=== PATIENT | male | born 1960 | race Caucasian/White ===

== ENCOUNTER 2017-09-01 09:46 | Day surgery (SDC) | payer OTHER ==
[2017-08-27 15:13] VITALS: BMI 25.7
[~2017-09-01 09:46] MED LIST: LACTATED RINGERS 1,000 ML IV SCH
[2017-09-01 10:07] VITALS: RESP 16; TEMP 98.1
[2017-09-01] MEDS ORDERED: LIDOCAINE 1% INJ 10MG/ML (20 ML MDV) ONE (11:42)
[2017-09-01] MEDS ORDERED: PROPOFOL 10 MG/ML 20 ML VIAL IV ONE (11:42)
--- NOTE | 2017-09-01 11:45 | P.GSHP ---
History of Present Illness H&P Date: 09/01/17 Chief Complaint: Screening colonoscopy This a 56-year-old male referred from Dr. Genesis buitrago. Patient presents today for screening colonoscopy. He denies any significant GI complaints. Past Medical History Past Medical History: Thyroid Disorder History of Any Multi-Drug Resistant Organisms: None Reported Additional Past Surgical History / Comment(s): colonsocopy Past Anesthesia/Blood Transfusion Reactions: No Reported Reaction Smoking Status: Never smoker - Past Family History Mother Family Medical History: Cancer Medications and Allergies Home Medications Medication Instructions Recorded Confirmed Type Levothyroxine Sodium [Synthroid] 75 mcg PO DAILY 08/27/17 09/01/17 History Allergies Allergy/AdvReac Type Severity Reaction Status Date / Time No Known Allergies Allergy Verified 09/01/17 09:58 Surgical - Exam Vital Signs Temp Pulse Resp BP Pulse Ox 98.1 F 54 L 16 148/88 100 09/01/17 10:05 09/01/17 10:05 09/01/17 10:05 09/01/17 10:05 09/01/17 10:05 - General well developed, no distress - Eyes PERRL - ENT normal pinna - Neck no masses - Respiratory normal expansion - Cardiovascular Rhythm: regular Heart Sounds: normal: S1 - Abdomen Abdomen: soft, non tender Assessment and Plan Assessment: We'll perform screening colonoscopy.
[2017-09-01 12:37] VITALS: BP 125/85; PULSE 56
--- NOTE | 2017-09-01 12:59 | P.OP ---
Date of Procedure: 09/01/17 Preoperative Diagnosis: Screening colonoscopy Postoperative Diagnosis: Rectal polyp 2, right colon polyp Mild diverticulosis Procedure(s) Performed: Colonoscopy Anesthesia: MAC Surgeon: El Fuller Pathology: other (Rectal polyp 2, right colon polyp) Condition: stable Disposition: PACU Description of Procedure: The patient's placed on the endoscopy table lateral position. He received IV sedation. Digital rectal exam was performed. A polyp was palpated. Flexible colonoscope was then placed patient anus and at the anal verge there was a polyp seen. Scope was then advanced through the colon. Another polyp was seen in the proximal rectum the scope was then placed throughout the colon and the ileocecal valve was visualized. The cecum appeared normal. In the right colon there was a small sessile polyp and this was removed the forcep. Scope was withdrawn the remainder the ascending colon appeared normal. The transverse colon was normal. In the descending colon was a few scattered diverticula. Scope was then brought back and the sigmoid colon and a few scattered diverticula were seen. Scope was then brought back the rectum and in the proximal rectum there was a peduncular polyp and this was removed with the snare. Scope was then brought back and the original rectal polyp which was visualized just above the anus was removed with the snare. Scope was withdrawn for patient.
== END 2017-09-01 12:58 | disposition home or self-care (01) ==
LOC: ORWHC2ENDO 09:46
PROVIDERS: ATTEND Surgery
DX: Z12.11 Encounter for screening for malignant neoplasm of colon (principal); D12.8 Benign neoplasm of rectum; K63.5 Polyp of colon; K57.30 Diverticulosis of large intestine without perforation or abscess without bleeding; E07.9 Disorder of thyroid, unspecified; Z79.890 Hormone replacement therapy
CPT/HCPCS: 45380; 45385; 88305

== ENCOUNTER 2018-05-27 16:03 | Emergency (ER) | payer OTHER ==
[2018-05-27] MEDS ORDERED: MORPHINE SULFATE 4 MG/ML SYRINGE IV STA (16:39)
[2018-05-27] MEDS ORDERED: SODIUM CHLORIDE 0.9% 1,000 ML IV STA (17:08)
--- NOTE | 2018-05-27 17:17 | XR ---
EXAMINATION TYPE: XR ribs bilateral DATE OF EXAM: 05/27/2018 COMPARISON: NONE HISTORY: Fall. Pain. TECHNIQUE: 8 views FINDINGS: I see no pleural effusion or pneumothorax. The lungs are clear of infiltrate. I see no rib fracture. IMPRESSION: Negative bilateral rib exam.
--- NOTE | 2018-05-27 17:28 | XR ---
EXAMINATION TYPE: XR chest 2V DATE OF EXAM: 05/27/2018 COMPARISON: NONE HISTORY: Fall. Pain. TECHNIQUE: Frontal and lateral views of the chest are obtained. FINDINGS: Heart and mediastinum are normal. Lungs are clear. Diaphragm is normal per there is no sig n of a pneumothorax. Bony thorax appears intact. IMPRESSION: Normal chest
--- NOTE | 2018-05-27 17:56 | ED ---
General Adult HPI - General Source: patient, RN notes reviewed, old records reviewed Mode of arrival: ambulatory Limitations: no limitations <Catracho Espinosa - Last Filed: 05/27/18 19:05> <Ortiz Avina - Last Filed: 05/28/18 00:47> - General Chief complaint: Fall Stated complaint: Fell 6 ft - History of Present Illness Initial comments: 57-year-old male patient with no pertinent past medical history presents to ED after sustaining acute fall. Patient states that he was standing on a ladder approximate 6 feet up in the air when the leg of the ladder slipped, patient became unstable and fell on concrete. Patient fell directly on his left flank. Patient denies any trauma to head and neck upper or lower extremities. Patient primary complaint is his posterior left ribs. Patient states that he has pain with palpation of left posterior ribs. Patient denies trauma to head or neck, loss of consciousness, difficulty breathing, changes in vision, nausea vomiting diarrhea, abdominal pain, hematuria, pain in upper and lower extremities. Patient is ambulatory. Patient is using all extremities. Systemic: Pt denies fatigue, myalgia, fever/chills, rash. Pt denies weakness, night sweats, weight loss. Neuro: Pt denies headache, visual disturbances, syncope or pre-syncope. HEENT: Pt denies ocular discharge or irritation, otalgia, rhinorrhea, pharyngitis or notable lymphadenopathy. Cardiopulmonary: Pt denies chest pain, SOB, heart palpitations, dyspnea on exertion. Abdominal/GI: Pt denies abdominal pain, n/v/d. : Pt denies dysuria, burning w/ urination, frequency/urgency. Denies new onset urinary or bowel incontinence. MSK: Pt denies loss of strength or function in extremities. Neuro: Pt denies new onset weakness, paresthesias. (Catracho Espinosa) - Related Data Home Medications Medication Instructions Recorded Confirmed Levothyroxine Sodium [Synthroid] 88 mcg PO DAILY 05/27/18 05/27/18 Previous Rx's Medication Instructions Recorded Hydrocodone/Acetaminophen [Rush 1 each PO Q6HR PRN 3 Days #12 tab 05/27/18 5-325] Ibuprofen [Motrin] 600 mg PO Q6HR PRN #30 day 05/27/18 Allergies Allergy/AdvReac Type Severity Reaction Status Date / Time No Known Allergies Allergy Verified 05/27/18 16:59 Review of Systems ROS Other: All systems not noted in ROS Statement are negative. <Catracho Espinosa - Last Filed: 05/27/18 19:05> ROS Other: All systems not noted in ROS Statement are negative. <Ortiz Avina Blake - Last Filed: 05/28/18 00:47> ROS Statement: Those systems with pertinent positive or pertinent negative responses have been documented in the HPI. Past Medical History Past Medical History: Thyroid Disorder History of Any Multi-Drug Resistant Organisms: None Reported Additional Past Surgical History / Comment(s): colonsocopy Past Anesthesia/Blood Transfusion Reactions: No Reported Reaction Past Psychological History: No Psychological Hx Reported Smoking Status: Never smoker Past Alcohol Use History: None Reported Past Drug Use History: None Reported - Past Family History Mother Family Medical History: Cancer <Catracho Espinosa - Last Filed: 05/27/18 19:05> General Exam Limitations: no limitations <Catracho Espinosa - Last Filed: 05/27/18 19:05> <Ortiz Avina - Last Filed: 05/28/18 00:47> - General Exam Comments Initial Comments: Constitutional: NAD, AOX3, Pt has pleasant affect. HEENT: NC/AT, trachea midline, neck supple, no lymphadenopathy. Posterior pharynx non erythematous, without exudates. External ears appear normal, without discharge. Mucous membranes moist. Eyes PERRLA, EOM intact. There is no scleral icterus. No pallor noted. Cardiopulmonary: RRR, no murmurs, rubs or gallops, no JVD noted. Lungs CTAB in anterior and posterior kc. No peripheral edema. Abdominal exam: Abdomen soft and non-distended. Abdomen non-tender to palpation in all 4 quadrants. Bowel sounds active in LLQ. No hepatosplenomegaly. No ecchymosis Neuro: CN II-XII intact. No nuchal rigidity. No focal deficit, no facial droop. No cervical spinal tenderness. Full active range of motion of neck. MSK: Patient has pain with palpation of his posterior angle left 8th rib. Patient has focal tenderness in this area. Patient does not have any other areas of tenderness. All joints palpated upper, lower extremities, abdomen, chest wall, cervical thoracic lumbar, no other areas of tenderness noted. Patient has 5 out of 5 strength quadriceps, psoas, biceps, triceps bilaterally. No posterior calf tenderness bilaterally, homans sign negative bilaterally. Posterior tibialis and radial pulse +2 bilaterally. Derm: No ecchymoses noted. (Catracho Espinosa) Vital Signs 05/27/18 05/27/18 05/27/18 16:06 16:30 17:00 Temperature 94.4 F L Pulse Rate 53 L 55 L 58 L Respiratory 22 23 16 Rate Blood Pressure 108/73 115/85 113/95 O2 Sat by Pulse 98 94 L 99 Oximetry 05/27/18 05/27/18 05/27/18 17:30 18:00 18:05 Temperature 97.6 F Pulse Rate 61 56 L Respiratory 15 18 Rate Blood Pressure 106/88 119/82 126/81 O2 Sat by Pulse 97 97 Oximetry 05/27/18 05/27/18 18:30 19:00 Temperature Pulse Rate 60 59 L Respiratory 12 18 Rate Blood Pressure 126/81 122/81 O2 Sat by Pulse 96 Oximetry Medical Decision Making - EKG Data -: EKG Interpreted by Fl <Catracho Espinosa - Last Filed: 05/27/18 19:05> <Ortiz Avina - Last Filed: 05/28/18 00:47> - Medical Decision Making 57-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 Patient did not have any trauma to head or neck, no pain in head or neck, no loss consciousness, no changes in vision, no headache. Patient 's pain is localized in his left posterior rib region. Physical exam revealed good bilateral breath sounds in anterior and posterior kc, regular rate and rhythm. Neuro exam is within normal limits. Patient's ambulatory without difficulty. Patient pain relieved after 4 mg IM morphine. Patient able to take deep inspirations at well. CT chest abdomen pelvis with contrast displayed a nondisplaced rib fractures of the eighth ninth 10th and 11th left posterior. CT did not display any other injury, no pneumothorax, no intra- abdominal injury. Patient is not on blood thinners. Discussed findings with patient, offered patient the option of staying in observation overnight for IV pain control. Patient states that he is rather go home. Emphasized to patient the necessity of incentive spirometry at home. Patient verbalized understanding. Patient to be discharged with by mouth analgesia to take as needed for pain at home. Patient to be given orthopedic referral to call in morning. Patient to return to ED if any new signs or symptoms develop including difficulty breathing, chest pain, shortness of breath, abdominal pain , hematuria, any other signs or symptoms. Pt to f/u with PCP in 1-2 days. Case discussed with Dr. Hollins. (Catracho Espinosa) 57-year-old male with fall and left chest wall pain. Patient does have consecutive rib fractures, eighth, ninth, 10th and 11th rib fractures on the left. No underlying the thorax or pulmonary contusion. Patient is resting comfortably on reevaluation, vital signs are stable. I did offer the patient observation for pain control, he declines, prefers outpatient treatment. He will return with any worsening symptoms. He will use his incentive spirometer. (Ortiz Avina) - EKG Data EKG Comments: Ventricular rate 55, when necessary for 132, QRS 100, QT/QTc 440/420. His bradycardia, possible left atrial enlargement. No concerns for acute ischemia. (Catracho Espinosa) Disposition Is patient prescribed a controlled substance at d/c from ED?: Yes When asked, does pt state using other controlled substances?: No If prescribed controlled substance>3 days was MAPS reviewed?: Prescribed <3 Days If opioid is for acute pain is fill amount 7 days or less?: Yes If Rx opioid, was Start Talking consent form obtained?: Yes <Catracho Espinosa - Last Filed: 05/27/18 19:05> <Ortiz Avina - Last Filed: 05/28/18 00:47> Clinical Impression: Closed traumatic nondisplaced fracture of rib, Ribs, multiple fractures Disposition: HOME SELF-CARE Condition: Good Instructions: Rib Fracture (ED) Additional Instructions: Patient to adhere to previously discussed treatment plan and will take medication(s) as directed. Patient to follow up with PCP in 1-2 days. Patient to return to ED if symptoms do not improve. Prescriptions: Hydrocodone/Acetaminophen [Rush 5-325] 1 each PO Q6HR PRN 3 Days #12 tab PRN Reason: Pain Ibuprofen [Motrin] 600 mg PO Q6HR PRN #30 day PRN Reason: Pain Referrals: Genesis Pro, [Primary Care Provider] - 1-2 days Melonie Girard, DAWIT [Nurse Practitioner] - 1-2 days
[2018-05-27 18:12] VITALS: RESP 18; TEMP 97.6
--- NOTE | 2018-05-27 18:31 | CT ---
EXAMINATION TYPE: CT ChestAbdPelvis w con DATE OF EXAM: 05/27/2018 COMPARISON: None HISTORY: Fall x6 feet, left side chest pain. CT DLP: 665.7 mGycm Automated exposure control for dose reduction was used. CONTRAST: CT scan of the chest, abdomen and pelvis is performed without Oral Contrast and with IV Contrast, pat ient injected with 100ml mL of Isovue 300. FINDINGS: The lungs are clear of infiltrate. There is no pleural effusion. Heart size is normal. There is no pe ricardial effusion. There is no mediastinal adenopathy. There is no evidence of pneumothorax. Thoraci c aorta is intact without evidence of aneurysm or dissection. There is no contrast extravasation. Liver spleen pancreas gallbladder appear normal. Bile ducts are not dilated. There is no adrenal mass . Kidneys show satisfactory contrast opacification. There is 1 cm cortical cyst posterior left kidney . There is no hydronephrosis. There is no retroperitoneal adenopathy. Bladder distends smoothly. Ther e is no inguinal hernia. There is no free fluid in the pelvis. I see no intestinal wall thickening. There are no dilated loops. Appendix is not seen. There is no si gn of appendicitis. There is no mesenteric edema or adenopathy. The bony pelvis is intact. There is narrowing of L5-S1 disc space with spurring. Thoracic and lumbar spine are intact. Sternum is intact. There are fractures of the posterior left side 8, 9, 10, 11 ribs . IMPRESSION: Mild spondylosis in the lower lumbar spine. Nondisplaced multiple posterior rib fractures .. No evidence of acute traumatic injury within the chest abdomen and pelvis.
[2018-05-27 19:29] VITALS: BP 122/81; PULSE 59
== END 2018-05-27 19:36 | disposition home or self-care (01) ==
LOC: EC 16:03
DX: S22.42XA Multiple fractures of ribs, left side, initial encounter for closed fracture (principal); E07.9 Disorder of thyroid, unspecified; Z79.899 Other long term (current) drug therapy; W11.XXXA Fall on and from ladder, initial encounter; Y92.69 Other specified industrial and construction area as the place of occurrence of the external cause
CPT/HCPCS: 93005; 71110; 71046; 71260; 74177; 99284; 96374; 96361; J2270; Q9967

== ENCOUNTER → 2019-11-21 | Outpatient (CLI) | payer OTHER | END | disposition home or self-care (01) | LOC: LABWHC1 12:47 | PROVIDERS: ATTEND Surgery | DX: Z11.59 Encounter for screening for other viral diseases (principal) ==

== ENCOUNTER → 2019-11-24 | Day surgery (SDC) | payer OTHER ==
[2019-11-23 08:59] VITALS: BMI 24.4
[~2019-11-24] MED LIST changes: +GLYCOPYRROLATE 0.2 MG/ML 2 ML VIAL ONE; +LIDOCAINE 1% (10MG/ML) FOR IV START INTRADERMA ONE; +PROPOFOL 10 MG/ML 20 ML VIAL IV ONE
[2019-11-24 09:30] VITALS: RESP 16; TEMP 97.4
--- NOTE | 2019-11-24 10:00 | P.GSHP ---
History of Present Illness H&P Date: 11/24/19 Chief Complaint: History of colon polyps Is a 59-year-old male with history of colon polyps. Patient rents today for colonoscopy Past Medical History Past Medical History: Thyroid Disorder Additional Past Medical History / Comment(s): HX COLON POLYP, HX OF FALL WITH BROKEN RIBS. History of Any Multi-Drug Resistant Organisms: None Reported Additional Past Surgical History / Comment(s): colonsocopy Past Anesthesia/Blood Transfusion Reactions: No Reported Reaction Past Psychological History: No Psychological Hx Reported Smoking Status: Never smoker Past Alcohol Use History: None Reported Past Drug Use History: None Reported - Past Family History Mother Family Medical History: Cancer Additional Family Medical History / Comment(s): BREAST CANCER Medications and Allergies Home Medications Medication Instructions Recorded Confirmed Type Levothyroxine Sodium [Synthroid] 88 mcg PO DAILY 05/27/18 11/23/19 History Allergies Allergy/AdvReac Type Severity Reaction Status Date / Time morphine AdvReac Severe DROPPED Verified 11/23/19 08:45 HEART RATE TO 28 Surgical - Exam Vital Signs Temp Pulse Resp BP Pulse Ox 97.4 F L 54 L 16 128/60 97 11/24/19 09:26 11/24/19 09:26 11/24/19 09:26 11/24/19 09:26 11/24/19 09:26 - General well developed, well nourished, no distress - Eyes PERRL - ENT normal pinna - Neck no masses - Respiratory normal expansion - Cardiovascular Rhythm: regular - Abdomen Abdomen: soft, non tender Assessment and Plan Assessment: History: Polyps. We'll perform colonoscopy.
--- NOTE | 2019-11-24 10:14 | P.OP ---
Date of Procedure: 11/24/19 Preoperative Diagnosis: History of colonic Polyps Postoperative Diagnosis: Normal colonoscopy Procedure(s) Performed: Colonoscopy Anesthesia: MAC Surgeon: El Fuller Pathology: none sent Condition: stable Disposition: PACU Description of Procedure: No PROCEDURE: The patient was placed on the endoscopy table in the lateral position. Digital rectal examination was performed which revealed no abnormalities. The prostate was symmetrical without nodules. Flexible colonoscope was then placed in the patient's anus and passed throughout the entire colon. The ileocecal valve was visualized. The cecum, ascending, transverse, descending and sigmoid colon were normal. The rectum was normal as well. There were no masses, polyps or diverticula noted in the entire colon.
[2019-11-24 10:34] VITALS: BP 107/77; PULSE 46
== END | disposition home or self-care (01) ==
LOC: ORWHC2ENDO 08:52
PROVIDERS: ATTEND Surgery
DX: Z12.11 Encounter for screening for malignant neoplasm of colon (principal); Z86.010 Personal history of colon polyps; E07.9 Disorder of thyroid, unspecified; Z87.81 Personal history of (healed) traumatic fracture; Z98.890 Other specified postprocedural states; Z80.3 Family history of malignant neoplasm of breast; Z79.890 Hormone replacement therapy; Z88.5 Allergy status to narcotic agent
CPT/HCPCS: J2704; G0105; 45378

== ENCOUNTER 2023-10-21 20:08 | Observation (INO) | payer OTHER ==
[2023-10-21 20:32] LABS: Basophils # (A) 0.1 k/uL (0-0.2); Basophils % (A) 1 %; Eosinophils # (A) 0.2 k/uL (0-0.7); Eosinophils % (A) 3 %; HCT 46.1 % (39.0-53.0); HGB 15.3 gm/dL (13.0-17.5); Lymphocytes # (A) 2.2 k/uL (1.0-4.8); Lymphocytes % (A) 31 %; MCHC 33.2 g/dL (31.0-37.0); MCV 93.2 fL (80.0-100.0); Mean Platelet Volume 8.9; Monocytes # (A) 0.4 k/uL (0-1.0); Monocytes % (A) 6 %; Neutrophils % (A) 57 %; Platelet Count 154 k/uL (150-450); RBC 4.94 m/uL (4.30-5.90); RDW 12.5 % (11.5-15.5)
[2023-10-21 20:41] LABS: ALT 31 U/L (4-49); AST 28 U/L (17-59); African American GFR (CKD) >90 (>60 ml/min/1.73 sqM); Albumin 4.6 g/dL (3.5-5.0); Alkaline Phosphatase 58 U/L (38-126); Anion Gap 4 mmol/L; Blood Urea Nitrogen 20 mg/dL (9-20); Calcium 9.7 mg/dL (8.4-10.2); Carbon Dioxide 29 mmol/L (22-30); Chloride 106 mmol/L (98-107); Glucose 96 mg/dL (74-99); Magnesium 2.3 mg/dL (1.6-2.3); Non-African American GFR(CKD) 88 (>60 ml/min/1.73 sqM); Potassium 4.2 mmol/L (3.5-5.1); Sodium 139 mmol/L (137-145); Total Bilirubin 0.7 mg/dL (0.2-1.3)
--- NOTE | 2023-10-21 20:45 | XR ---
EXAMINATION TYPE: XR chest 2V DATE OF EXAM: 10/21/2023 COMPARISON: 05/27/2018 HISTORY: Chest pain TECHNIQUE: Frontal and lateral views of the chest are obtained. FINDINGS: There is no focal air space opacity, pleural effusion, or pneumothorax seen. The cardiac silhouette size is within normal limits. The osseous structures are intact. IMPRESSION: No acute cardiopulmonary process.
[2023-10-21 20:54] LABS: Partial Thromboplastin Time 23.8 sec (22.0-30.0); Prothrombin Time 10.8 sec (10.0-12.5)
--- NOTE | 2023-10-21 21:08 | ED ---
General Adult HPI - General Chief complaint: Chest Pain Stated complaint: chest pain arm pain Time Seen by Provider: 10/21/23 20:15 Source: patient, RN notes reviewed, old records reviewed Mode of arrival: ambulatory Limitations: no limitations - History of Present Illness Initial comments: 62-year-old male presenting for evaluation of chest pain. Patient had an episode of central chest pain just prior to arrival. This was associated with lightheadedness and near syncope. Patient states he did use a pulse oximeter and noted that his heart rate was quite low at this time in the 30s. He does state that he has a low resting heart rate typically in the 60s. No prior history of cardiac disease. He states he has been dealing with some intermitte nt left shoulder and left arm pain for several weeks. No lower extremity pain or swelling. No fever. No cough. - Related Data Home Medications Medication Instructions Recorded Confirmed Acetaminophen Tab [Tylenol] 1,000 mg PO Q6HR PRN 10/21/23 10/21/23 Previous Rx's Medication Instructions Recorded Levothyroxine Sodium [Synthroid] 125 mcg PO DAILY@0630 #30 tab 10/22/23 Lidocaine 4% Patch 2 patch TOPICAL DAILY #30 patch 10/22/23 Allergies Allergy/AdvReac Type Severity Reaction Status Date / Time morphine AdvReac Severe DROPPED Verified 10/21/23 20:36 HEART RATE TO 28 Review of Systems ROS Statement: Those systems with pertinent positive or pertinent negative responses have been documented in the HPI. ROS Other: All systems not noted in ROS Statement are negative. Past Medical History Past Medical History: Thyroid Disorder Additional Past Medical History / Comment(s): HX COLON POLYP, HX OF FALL WITH BROKEN RIBS. History of Any Multi-Drug Resistant Organisms: None Reported Additional Past Surgical History / Comment(s): colonsocopy Past Anesthesia/Blood Transfusion Reactions: No Reported Reaction Past Psychological History: No Psychological Hx Reported Smoking Status: Never smoker Past Alcohol Use History: None Reported Past Drug Use History: None Reported - Past Family History Mother Family Medical History: Cancer Additional Family Medical History / Comment(s): BREAST CANCER General Exam Limitations: no limitations General appearance: alert, in no apparent distress Head exam: Present: atraumatic, normocephalic Eye exam: Present: normal appearance, PERRL ENT exam: Present: normal exam Neck exam: Present: normal inspection. Absent: tenderness, meningismus Respiratory exam: Present: normal lung sounds bilaterally. Absent: respiratory distress, wheezes Cardiovascular Exam: Present: normal rhythm, tachycardia GI/Abdominal exam: Present: soft. Absent: distended, tenderness, guarding Extremities exam: Present: normal inspection, normal capillary refill. Absent: pedal edema, calf tenderness Neurological exam: Present: alert, oriented X3, CN II-XII intact. Absent: motor sensory deficit Psychiatric exam: Present: normal affect, normal mood Skin exam: Present: warm, dry, intact. Absent: cyanosis, diaphoretic Course Vital Signs 10/21/23 10/21/23 10/21/23 20:12 21:35 22:00 Temperature 97.5 F L Pulse Rate 51 L 45 L 44 L Respiratory 18 16 16 Rate Blood Pressure 173/89 129/82 121/87 O2 Sat by Pulse 98 95 97 Oximetry 10/21/23 10/21/23 10/22/23 23:00 23:43 00:00 Temperature 97.6 F Pulse Rate 41 L 41 L 41 L Respiratory 16 18 18 Rate Blood Pressure 124/89 120/84 115/77 O2 Sat by Pulse 97 95 98 Oximetry Medical Decision Making - Medical Decision Making Was pt. sent in by a medical professional or institution (, PA, CLARITY DEVELOPER, urgent care, hospital, or skilled nursing...) When possible be specific @ -No Did you speak to anyone other than the patient for history (EMS, parent, family, police, friend...)? What history was obtained from this source @ -No Did you review nursing and triage notes (agree or disagree)? Why? @ -I reviewed and agree with nursing and triage notes Were old charts reviewed (outside hosp., previous admission, EMS record, old EKG, old radiological studies, urgent care reports/EKG's, skilled nursing records)? Report findings @ -No old charts were reviewed Differential Chest Pain: Stable Angina, Unstable Angina, STEMI, NSTEMI Aortic Dissection, Pneumothorax, Musculoskeletal, Esophageal Spasm GERD, Cholecystitis, Pancreatitis, Zoster, this is not meant to be an all-inclusive list. EKG interpreted by me (3pts min.). @ -Sinus bradycardia with sinus arrhythmia rate of 49, GA interval 157, QRS duration 107, QTc [address] segment elevation. Repeat EKG at 2147, sinus bradycardia with sinus arrhythmia, rate of 43, GA interval 168, QRS duration 105, QTc [address] segment elevation. X-rays interpreted by me (1pt min.). @Chest x-ray negative for acute cardiopulmonary findings. CT interpreted by me (1pt min.). @ -None done U/S interpreted by me (1pt. min.). @ -None done What testing was considered but not performed or refused? (CT, X-rays, U/S, labs)? Why? @ -None What meds were considered but not given or refused? Why? @ -None Did you discuss the management of the patient with other professionals (professionals i.e. DrMarley, PA, CLARITY DEVELOPER, lab, RT, psych nurse, psychiatric social worker, automobile service station manager, teacher, antisubmarine weapons officer, counter caser)? Give summary @ -Case discussed with Sherlyn hansen for EM, case discussed with Dr. Pauline hansen for cardiology. Was smoking cessation discussed for >3mins.? @ -No Was critical care preformed (if so, how long)? @ -No Were there social determinants of health that impacted care today? How? (Homele ssness, low income, unemployed, alcoholism, drug addiction, transportation, low edu. Level, literacy, decrease access to med. care, fdc, rehab)? @ -No Was there de-escalation of care discussed even if they declined (Discuss DNR or withdrawal of care, Hospice)? DNR status @ -No What co-morbidities impacted this encounter? (DM, HTN, Smoking, COPD, CAD, Cancer, CVA, ARF, Chemo, Hep., AIDS, mental health diagnosis, sleep apnea, morbid obesity)? @ -Hypothyroidism Was patient admitted / discharged? Hospital course, mention meds given and route, prescriptions, significant lab abnormalities, going to OR and other pertinent info. @ -62-year-old male presenting with chest pain, left arm pain, and near syncope. Patient does have symptoms to the left arm although this seems more chronic and musculoskeletal in nature. Chest pain resolved. Patient noted that his heart rate was quite low at the symptom onset and that he was near syncopal. Heart rate in the emergency department is sinus bradycardia rate of between 40 and 50. Blood pressure stable. Patient has normal CBC, normal CMP, negative D- dimer, negative troponin. He has an elevated TSH with a normal T4. He is started back on his thyroid medication. He will be observed on telemetry, repeat troponin has been ordered. Echo has been ordered. Admitted to internal medicine with cardiology on consult. Undiagnosed new problem with uncertain prognosis? @ -No Drug Therapy requiring intensive monitoring for toxicity (Heparin, Nitro, Insulin, Cardizem)? @ -No Were any procedures done? @ -No Diagnosis/symptom? @ -Chest pain, bradycardia, near syncope Acute, or Chronic, or Acute on Chronic? @ -Acute Uncomplicated (without systemic symptoms) or Complicated (systemic symptoms)? @ -Default Side effects of treatment? @ -No Exacerbation, Progression, or Severe Exacerbation? @ -No Poses a threat to life or bodily function? How? (Chest pain, [place], [place], pneumonia, PE, COPD, DKA, ARF, appy, cholecystitis, CVA, Diverticulitis, Homicidal, Suicidal, threat to staff... and all critical care pts) @ -Yes, ACS, bradycardia dysrhythmia, syncope - Lab Data Result diagrams: 10/21/23 20:20 10/21/23 20:20 Lab Results 10/21/23 10/21/23 10/21/23 Range/Units 20:20 20:20 20:20 WBC 7.0 (3.8-10.6) k/uL RBC 4.94 (4.30-5.90) m/uL Hgb 15.3 (13.0-17.5) gm/dL Hct 46.1 (39.0-53.0) % MCV 93.2 (80.0-100.0) fL MCH 31.0 (25.0-35.0) pg MCHC 33.2 (31.0-37.0) g/dL RDW 12.5 (11.5-15.5) % Plt Count 154 (150-450) k/uL MPV 8.9 Neutrophils % 57 % Lymphocytes % 31 % Monocytes % 6 % Eosinophils % 3 % Basophils % 1 % Neutrophils # 4.0 (1.3-7.7) k/uL Lymphocytes # 2.2 (1.0-4.8) k/uL Monocytes # 0.4 (0-1.0) k/uL Eosinophils # 0.2 (0-0.7) k/uL Basophils # 0.1 (0-0.2) k/uL PT 10.8 (10.0-12.5) sec INR 1.0 (<1.2) APTT 23.8 (22.0-30.0) sec D-Dimer <0.17 (<0.60) mg/L FEU Sodium 139 (137-145) mmol/L Potassium 4.2 (3.5-5.1) mmol/L Chloride 106 (98-107) mmol/L Carbon Dioxide 29 (22-30) mmol/L Anion Gap 4 mmol/L BUN 20 (9-20) mg/dL Creatinine 0.92 (0.66-1.25) mg/dL Est GFR (CKD-EPI)AfAm >90 (>60 ml/min/1.73 sqM) Est GFR (CKD-EPI)NonAf 88 (>60 ml/min/1.73 sqM) Glucose 96 (74-99) mg/dL Calcium 9.7 (8.4-10.2) mg/dL Magnesium 2.3 (1.6-2.3) mg/dL Total Bilirubin 0.7 (0.2-1.3) mg/dL AST 28 (17-59) U/L ALT 31 (4-49) U/L Alkaline Phosphatase 58 (38-126) U/L Troponin I (0.000-0.034) ng/mL Total Protein 7.0 (6.3-8.2) g/dL Albumin 4.6 (3.5-5.0) g/dL TSH 15.100 H (0.465-4.680) mIU/L Free T4 1.09 (0.78-2.19) ng/dL 10/21/23 Range/Units 20:20 WBC (3.8-10.6) k/uL RBC (4.30-5.90) m/uL Hgb (13.0-17.5) gm/dL Hct (39.0-53.0) % MCV (80.0-100.0) fL MCH (25.0-35.0) pg MCHC (31.0-37.0) g/dL RDW (11.5-15.5) % Plt Count (150-450) k/uL MPV Neutrophils % % Lymphocytes % % Monocytes % % Eosinophils % % Basophils % % Neutrophils # (1.3-7.7) k/uL Lymphocytes # (1.0-4.8) k/uL Monocytes # (0-1.0) k/uL Eosinophils # (0-0.7) k/uL Basophils # (0-0.2) k/uL PT (10.0-12.5) sec INR (<1.2) APTT (22.0-30.0) sec D-Dimer (<0.60) mg/L FEU Sodium (137-145) mmol/L Potassium (3.5-5.1) mmol/L Chloride (98-107) mmol/L Carbon Dioxide (22-30) mmol/L Anion Gap mmol/L BUN (9-20) mg/dL Creatinine (0.66-1.25) mg/dL Est GFR (CKD-EPI)AfAm (>60 ml/min/1.73 sqM) Est GFR (CKD-EPI)NonAf (>60 ml/min/1.73 sqM) Glucose (74-99) mg/dL Calcium (8.4-10.2) mg/dL Magnesium (1.6-2.3) mg/dL Total Bilirubin (0.2-1.3) mg/dL AST (17-59) U/L ALT (4-49) U/L Alkaline Phosphatase (38-126) U/L Troponin I <0.012 (0.000-0.034) ng/mL Total Protein (6.3-8.2) g/dL Albumin (3.5-5.0) g/dL TSH (0.465-4.680) mIU/L Free T4 (0.78-2.19) ng/dL Disposition Clinical Impression: Chest pain, Syncope, near, Bradycardia Disposition: ADMITTED IP TO THIS [facility] Condition: Stable Is patient prescribed a controlled substance at d/c from ED?: No Time of Disposition: 22:16
[2023-10-21] MEDS: ASPIRIN 325 MG TAB PO STA (21:36)
[2023-10-21 21:38] LABS: T4, Free (Free Thyroxine) 1.09 ng/dL (0.78-2.19)
[2023-10-21] MEDS ORDERED: NALOXONE 0.4 MG/ML 1 ML VIAL IV PRN (22:12)
[2023-10-21] MEDS: LEVOTHYROXINE 125 MCG TAB PO STA (23:12)
[2023-10-21] MEDS: SODIUM CHLORIDE 0.9% 1,000 ML IV SCH (23:14)
[2023-10-22] MEDS: ACETAMINOPHEN TAB 325 MG TAB PO PRN (01:32)
[2023-10-22] MEDS ORDERED: ONDANSETRON 4 MG/2 ML VIAL IVP PRN (05:45)
[2023-10-22] MEDS: LEVOTHYROXINE 125 MCG TAB PO SCH (06:09)
[2023-10-22] MEDS: PANTOPRAZOLE 40 MG TABLET PO SCH (06:09)
[2023-10-22 08:57] VITALS: BP 137/87; RESP 16; TEMP 97.6
--- NOTE | 2023-10-22 10:09 | P.CRDCN ---
History of Present Illness Consult date: 10/22/23 Consult reason: chest pain (Bradycardia) History of present illness: History of present illness: This is a 62-year-old male with no previous cardiac history. He has a past medical history of hypothyroidism and stopped taking his medications about 4 months ago. We have been asked to evaluate the patient for chest pain and bradycardia. Patient had episode of chest pain with lightheadedness and near syncope. 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 His states that his heart rate is usually in the 60s. Patient states that he had a near syncopal episode and has had some left- sided shoulder pain going into the left upper arm. He went into the house and sat down and was feeling better. Later he was on his deck and he walked into the house he was feeling ill in general with nausea and near syncopal episode. He checked a pulse ox and his heart rate was in the 30s. Regarding hypothyroidism. Patient has not been taking his medications for at least 4 months because he did not think he needed it. Patient has been started on levothyroxine. Heart rate is currently 58 on telemetry. EKG sinus rhythm 43 bpm Chest x-ray: No acute process CBC, INR, D-dimer CMP within normal limits. Troponin negative x 2. TSH 15.1 with normal free T41.09. Home cardiac medications: None Review Of Systems: At the time of my exam: CONSTITUTIONAL: Denies fever or chills. HEENT: Denies blurred vision, vision changes, or eye pain. Denies hemoptysis CARDIOVASCULAR: Denies chest pain. Denies orthopnea. Denies PND. Denies palpitations RESPIRATORY: Denies shortness of breath. GASTROINTESTINAL: Denies abdominal pain. Denies nausea or vomiting. HEMATOLOGIC: Denies bleeding disorders. GENITOURINARY: Denies any blood in urine. SKIN: Denies pruitis. Denies rash. Physical examination: Gen: This is a 62-year-old male in no acute distress VS: reviewed, blood pressure 148/93, heart rate 41-49, pulse ox 98% on room air. HEENT: Head is atraumatic, normocephalic. Pupils equal, round. Sclerae is anicteric. NECK: Supple. No JVD. LUNGS: Clear to auscultation. No wheezes or rhonchi. No intercostal retractions. HEART: Regular rate and rhythm. No murmur. ABDOMEN: Soft No tenderness. EXTREMITIES: No pedal edema. No calf tenderness. NEUROLOGICAL: Patient is awake, alert and oriented x3. Assessment: Chest pain Bradycardia Hypothyroidism Plan: Continue levothyroxine Obtain 2-D echocardiogram and Doppler study to assess cardiac structure and function If heart rate remains stable by this afternoon, patient is cleared by cardiology for discharge and may follow-up in the office in 1 to 2 weeks. Thank you kindly for this consultation. Nurse practitioner note has been reviewed, I agree with documented findings and plan of care. Patient was seen and examined. Past Medical History Past Medical History: Thyroid Disorder Additional Past Medical History / Comment(s): HX COLON POLYP, HX OF FALL WITH BROKEN RIBS. History of Any Multi-Drug Resistant Organisms: None Reported Additional Past Surgical History / Comment(s): colonsocopy Past Anesthesia/Blood Transfusion Reactions: No Reported Reaction Past Psychological History: No Psychological Hx Reported Smoking Status: Never smoker Past Alcohol Use History: None Reported Past Drug Use History: None Reported - Past Family History Mother Family Medical History: Cancer Additional Family Medical History / Comment(s): BREAST CANCER Medications and Allergies Home Medications Medication Instructions Recorded Confirmed Type Acetaminophen Tab [Tylenol Tab] 1,000 mg PO Q6HR PRN 10/21/23 10/21/23 History Allergies Allergy/AdvReac Type Severity Reaction Status Date / Time morphine AdvReac Severe DROPPED Verified 10/21/23 20:36 HEART RATE TO 28 Physical Exam Vitals: Vital Signs Temp Pulse Pulse Resp BP BP Pulse Ox 10/22/23 02:00 49 L 10/22/23 01:27 97.5 F L 49 L 15 148/93 98 10/22/23 00:00 41 L 18 115/77 98 10/21/23 23:43 97.6 F 41 L 18 120/84 95 10/21/23 23:00 41 L 16 124/89 97 10/21/23 22:00 44 L 16 121/87 97 10/21/23 21:35 45 L 16 129/82 95 10/21/23 20:12 97.5 F L 51 L 18 173/89 98 Intake and Output 10/21/23 10/22/23 10/22/23 22:59 06:59 14:59 Other: Voiding Method Toilet # Voids 2 Weight 86.183 kg 86.183 kg Results 10/21/23 20:20 10/21/23 20:20 Cardiac Enzymes 10/21/23 10/21/23 10/21/23 Range/Units 20:20 20:20 22:31 AST 28 (17-59) U/L Troponin I <0.012 <0.012 (0.000-0.034) ng/mL Coagulation 10/21/23 Range/Units 20:20 PT 10.8 (10.0-12.5) sec APTT 23.8 (22.0-30.0) sec CBC 10/21/23 Range/Units 20:20 WBC 7.0 (3.8-10.6) k/uL RBC 4.94 (4.30-5.90) m/uL Hgb 15.3 (13.0-17.5) gm/dL Hct 46.1 (39.0-53.0) % Plt Count 154 (150-450) k/uL Comprehensive Metabolic Panel 10/21/23 Range/Units 20:20 Sodium 139 (137-145) mmol/L Potassium 4.2 (3.5-5.1) mmol/L Chloride 106 (98-107) mmol/L Carbon Dioxide 29 (22-30) mmol/L BUN 20 (9-20) mg/dL Creatinine 0.92 (0.66-1.25) mg/dL Glucose 96 (74-99) mg/dL Calcium 9.7 (8.4-10.2) mg/dL AST 28 (17-59) U/L ALT 31 (4-49) U/L Alkaline Phosphatase 58 (38-126) U/L Total Protein 7.0 (6.3-8.2) g/dL Albumin 4.6 (3.5-5.0) g/dL Current Medications Generic Name Dose Route Start Last Admin Trade Name Freq PRN Reason Stop Dose Admin Acetaminophen 650 mg 10/21/23 22:12 10/22/23 01:32 Acetaminophen Tab 325 Mg Tab PO 650 mg Q6HR PRN Administration Mild Pain or Fever > 100.5 Sodium Chloride 1,000 mls @ 75 mls/hr 10/21/23 22:15 10/21/23 23:14 Saline 0.9% IV 75 mls/hr .[id number] GAVIN Administration Levothyroxine Sodium 125 mcg 10/22/23 06:30 10/22/23 06:09 Levothyroxine 125 Mcg Tab PO 125 mcg DAILY@0630 GAVIN Administration Naloxone HCl 0.2 mg 10/21/23 22:12 Naloxone 0.4 Mg/Ml 1 Ml Vial IV Q2M PRN Opioid Reversal Ondansetron HCl 4 mg 10/22/23 05:45 Ondansetron 4 Mg/2 Ml Vial IVP Q6HR PRN Nausea And Vomiting Pantoprazole Sodium 40 mg 10/22/23 07:30 10/22/23 06:09 Pantoprazole 40 Mg Tablet PO 40 mg [id number] GAVIN Administration Intake and Output 10/21/23 10/22/23 10/22/23 22:59 06:59 14:59 Other: Voiding Method Toilet # Voids 2 Weight 86.183 kg 86.183 kg 10/21/23 20:20 10/21/23 20:20
[2023-10-22] MEDS: LIDOCAINE 4% PATCH TOPICAL SCH (12:40)
--- NOTE | 2023-10-22 12:55 | CA ---
Transthoracic Echo Report Name: Edgar Wilcox Age: 62 Gender: M : 1960 Exam Date: 10/22/2023 08:57 Exam Location: [facility] Ht (in): 72 Wt (lb): 190 Ordering Physician: Ortiz Avina MD Attending/Referring Phys: [id number], Fabrice Board Writer Tami Pacheco RDCS Procedure CPT: Indications: cp/syncope Cardiac Hx: Technical Quality: Good Contrast 1: Definity Total Dose (mL): 2 Contrast 2: Total Dose (mL): MEASUREMENTS (Male / Female) Normal Values 2D ECHO LV Diastolic Diameter PLAX 5.7 cm 4.2 - 5.9 / 3.9 - 5.3 cm LV Systolic Diameter PLAX 3.1 cm IVS Diastolic Thickness 1.3 cm 0.6 - 1.0 / 0.6 - 0.9 cm LVPW Diastolic Thickness 1.3 cm 0.6 - 1.0 / 0.6 - 0.9 cm LV Relative Wall Thickness 0.5 RV Internal Dim ED PLAX 3.6 cm LA Systolic Diameter LX 3.9 cm 3.0 - 4.0 / 2.7 - 3.8 cm LV Diastolic Volume MOD BP 107.6 cm??? 67 - 155 / 56 - 104 cm??? LV Systolic Volume MOD BP 36.8 cm??? 22 - 58 / 19 - 49 cm??? LV Ejection Fraction MOD BP 65.8 % >= 55 % LV Cardiac Index MOD BP 1685.1 cm???/min???m??? LV Diastolic Volume MOD 4C 122.4 cm??? LV Systolic Volume MOD 4C 42.7 cm??? LV Ejection Fraction MOD 4C 65.1 % LV Cardiac Index MOD 4C 1896.8 cm???/min???m??? LV Diastolic Length 4C 8.5 cm LV Systolic Length 4C 6.3 cm LV Diastolic Volume MOD 2C 89.5 cm??? LV Systolic Volume MOD 2C 31.4 cm??? LV Ejection Fraction MOD 2C 64.9 % LV Cardiac Index MOD 2C 1381.3 cm???/min???m??? LV Diastolic Length 2C 8.0 cm LV Systolic Length 2C 6.6 cm M-MODE Aortic Root Diameter MM 3.6 cm LA Systolic Diameter MM 3.6 cm LA Ao Ratio MM 1.0 DOPPLER AV Peak Velocity 137.1 cm/s AV Peak Gradient 7.5 mmHg Mitral E Point Velocity 52.8 cm/s Mitral A Point Velocity 42.4 cm/s Mitral E to A Ratio 1.2 MV Deceleration Time 259.3 ms MV E' Velocity 6.2 cm/s Mitral E to MV E' Ratio 8.5 TR Peak Velocity 219.6 cm/s TR Peak Gradient 19.3 mmHg Right Ventricular Systolic Press 24.5 mmHg FINDINGS Left Ventricle Left ventricular ejection fraction is estimated at 60-65%. Mildly increased septal wall thickness. Normal left ventricular systolic function with no obvious regional wall motion abnormalities. Right Ventricle Normal right ventricular size and function. Right ventricular systolic pressure within normal limits. Right Atrium Normal right atrial size. Left Atrium Normal left atrial size. Mitral Valve Structurally normal mitral valve. Mild mitral regurgitation. Aortic Valve Trileaflet aortic valve. Trace aortic regurgitation. Tricuspid Valve Structurally normal tricuspid valve. Mild tricuspid regurgitation. Pulmonic Valve Structurally normal pulmonic valve. No pulmonic regurgitation.no pulmonic stenosis. Pericardium No pericardial or pleural effusion. Aorta Aorta at upper limits of normal. CONCLUSIONS Normal LV systolic function Previewed by: Dr. Kane Rowley MD (Electronically Signed) Final Date: 22 Oct 2023 12:54
--- NOTE | 2023-10-22 15:28 | P.HPIM ---
History of Present Illness H&P Date: 10/22/23 This is a 62-year-old male who presented to the emergency department with chest pain that it radiated to his arm and reported some lightheadedness with feelings of syncope. Patient reported he felt an uneasy feeling and nausea coming over him and had a pulse oximeter at home and checked his pulse and noted to be in the 30s. Patient denies having a syncopal event or falling during this episode and briefly subsided. Patient family was concerned and brought him here to the hospital for further evaluation. Patient does have a past medical history of hypothyroidism and reports has not been taking his medication in the last few months as he felt it was not necessary. Patient's denies any other significant history and reports he follows with Dr. Arash Pro in the outpatient setting. Chest x-ray showed no acute cardiopulmonary process, EKG showed sinus bradycardia with marked sinus arrhythmia with low voltage the heart rate of 43. Patient was admitted for cardiology evaluation. Labs reviewed and CBC within normal limits, D-dimer was negative, sodium 139, potassium 4.2, BUN 20, c reatinine 0.92, magnesium 2.3, troponins x 3 were negative, liver functions were normal, TSH was found to be elevated at 15.1 and free T4 was 1.09. Patient did have a 2D echo in the ER showing left LV ejection fraction is estimated at 60 to 65% with a mildly increased septal wall thickness with normal systolic function with no obvious regional wall motion normal abnormalities. REVIEW OF SYSTEMS: CONSTITUTIONAL: No fever, no malaise, no fatigue. HEENT: No recent visual problems or hearing problems. Denied any sore throat. CARDIOVASCULAR: No further reports of chest pain, orthopnea, PND, no palpitations, no syncope. PULMONARY: No shortness of breath, no cough, no hemoptysis. GASTROINTESTINAL: No diarrhea, reports resolved nausea, no vomiting, no abdominal pain. NEUROLOGICAL: No headaches, no weakness, no numbness. HEMATOLOGICAL: Denies any bleeding or petechiae. GENITOURINARY: Denies any burning micturition, frequency, or urgency. MUSCULOSKELETAL/RHEUMATOLOGICAL: Denies any joint pain, swelling, or any muscle pain. ENDOCRINE: Denies any polyuria or polydipsia. The rest of the 14-point review of systems is negative. PHYSICAL EXAMINATION: GENERAL: The patient is alert and oriented x3, not in any acute distress. Well developed, well nourished. Thin built HEENT: Pupils are round and equally reacting to light. EOMI. No scleral icterus. No conjunctival pallor. Normocephalic, atraumatic. No pharyngeal erythema. No thyromegaly. CARDIOVASCULAR: S1 and S2 muffled, bradycardic PULMONARY: Chest is clear to auscultation, no wheezing or crackles. ABDOMEN: Soft, nontender, nondistended, normoactive bowel sounds. No palpable organomegaly. MUSCULOSKELETAL: No joint swelling or deformity. EXTREMITIES: No cyanosis, clubbing, or pedal edema. NEUROLOGICAL: Gross neurological examination did not reveal any focal deficits. SKIN: No rashes. Assessment: Chest pain, ruled out ACS Bradycardia History of hypothyroidism Noncompliance with medications GI prophylaxis DVT prophylaxis Full code Plan: Patient was admitted for cardiology evaluation. Patient underwent 2D echo as mentioned previously and evaluated by cardiology. TSH was found to be elevated and free T4 within normal limits. Patient reports had not been taking his medications over the last few months as he felt he did not needed Patient being resumed on 125 mcg of levothyroxine and has been instructed to follow-up with cardiology as well as primary care provider outpatient Patient monitored overnight on telemetry monitoring and maintained heart rates into the 40s and 50s. Currently this morning heart rate is above 52. Patient is asymptomatic and was walked several times in the hallway with no symptoms reports he feels fine. Patient will be discharged home later today if continuing to be asymptomatic The impression and plan of care has been dictated by Sherlyn John, Nurse Practitioner as directed. Dr. Clarice MD I have performed a history and examination and MDM of this patient, discussed the same with the dictator, and agree with the dictator's assessment and plan as written ,documented as a scribe. Based on total visit time, I have performed more than 50% of the visit. Past Medical History Past Medical History: Thyroid Disorder Additional Past Medical History / Comment(s): HX COLON POLYP, HX OF FALL WITH BROKEN RIBS. History of Any Multi-Drug Resistant Organisms: None Reported Additional Past Surgical History / Comment(s): colonsocopy Past Anesthesia/Blood Transfusion Reactions: No Reported Reaction Past Psychological History: No Psychological Hx Reported Smoking Status: Never smoker Past Alcohol Use History: None Reported Past Drug Use History: None Reported - Past Family History Mother Family Medical History: Cancer Additional Family Medical History / Comment(s): BREAST CANCER Medications and Allergies Home Medications Medication Instructions Recorded Confirmed Type Acetaminophen Tab [Tylenol] 1,000 mg PO Q6HR PRN 10/21/23 10/21/23 History Levothyroxine Sodium [Synthroid] 125 mcg PO DAILY@0630 #30 tab 10/22/23 Rx Lidocaine 4% Patch 2 patch TOPICAL DAILY #30 patch 10/22/23 Rx Allergies Allergy/AdvReac Type Severity Reaction Status Date / Time morphine AdvReac Severe DROPPED Verified 10/21/23 20:36 HEART RATE TO 28 Physical Exam Vitals: Vital Signs Temp Pulse Pulse Resp BP BP BP 10/22/23 10:12 16 10/22/23 07:30 97.6 F 51 L 16 137/87 10/22/23 02:00 49 L 10/22/23 01:27 97.5 F L 49 L 15 148/93 10/22/23 00:00 41 L 18 115/77 10/21/23 23:43 97.6 F 41 L 18 120/84 10/21/23 23:00 41 L 16 124/89 10/21/23 22:00 44 L 16 121/87 10/21/23 21:35 45 L 16 129/82 10/21/23 20:12 97.5 F L 51 L 18 173/89 Pulse Ox 10/22/23 10:12 10/22/23 07:30 99 10/22/23 02:00 10/22/23 01:27 98 10/22/23 00:00 98 10/21/23 23:43 95 10/21/23 23:00 97 10/21/23 22:00 97 10/21/23 21:35 95 10/21/23 20:12 98 Intake and Output 10/21/23 10/22/23 10/22/23 22:59 06:59 14:59 Other: Voiding Method Toilet Toilet # Voids 2 Weight 86.183 kg 86.183 kg Results CBC & Chem 7: 10/21/23 20:20 10/21/23 20:20 Labs: Abnormal Lab Results - Last 24 Hours (Table) 10/21/23 Range/Units 20:20 TSH 15.100 H (0.465-4.680) mIU/L Thrombosis Risk Factor Assmnt - Choose All That Apply Any of the Below Risk Factors Present?: Yes Each Factor Represents 1 point: Age 41-60 years Other Risk Factors: No Other congenital or acquired thrombophilia - If yes, enter type in comment: No Thrombosis Risk Factor Assessment Total Risk Factor Score: 1 Thrombosis Risk Factor Assessment Level: Low Risk Assessment and Plan Time with Patient: Less than 30
--- NOTE | 2023-10-22 15:31 | P.DS ---
Providers Date of admission: 10/21/23 22:13 Expected date of discharge: 10/22/23 Attending physician: Tarun Jimenez Consults: 10/21/23 22:12 Consult Physician Routine Consulting Provider: Neto Carpenter Consult Reason/Comments: carlin HECTOR Do you want consulting provider notified?: Already Contacted Primary care physician: Genesis Pro [facility] Hospital Course: Final diagnosis Chest pain, ruled out ACS Bradycardia History of hypothyroidism Noncompliance with medications GI prophylaxis DVT prophylaxis Full code Discharge disposition Patient is being discharged in a stable condition with guarded prognosis to home. Patient will follow-up with Dr. Pro in the outpatient setting upon discharge. Patient is to continue with levothyroxine 125 mcg and close outpatient follow-up with cardiology as scheduled. Patient will be need repeat TSH, T3, T4 testing in the next 4 to 6 weeks. Total time taken is greater than 35 minutes. Hospital course This is a 62-year-old male who was recently admitted with a presyncopal type feeling with chest pain and was evaluated by cardiology. Patient reports has not been taking his thyroid medication over the last few months as he reports to feeling fine and did not felt he needed it. Patient with no significant past history reports having low heart rates in the low 60s normally. Patient was noted to have heart rates in the 30s and 40s on admission and was evaluated on continued telemetry monitoring resumed on levothyroxine and has been maintaining heart rates in the 50s. Patient did undergo 2D echo with normal LV function with some mild septal wall thickness and EF was 60 to 65%. Patient to follow-up with cardiology outpatient as well as primary care provider. Patient reports to feeling well and would like to go home. Stressed importance of compliance with medications. Currently no reports of chest pain, shortness of breath, or palpitations. Patient is afebrile. No reports of nausea or vomiting and patient is tolerating diet. Patient will be discharged home today. Physical exam: Gen: This is a 62-year-old male who is awake, alert and oriented x 3, well- developed, thin built HEENT: Head is atraumatic, normocephalic. Pupils equal, round. Sclerae is anicteric. NECK: Supple. No JVD. No lymphadenopathy. No thyromegaly. LUNGS: Clear to auscultation. No wheezes or rhonchi. No intercostal retractions. HEART: No murmur. Sinus bradycardia ABDOMEN: Soft. Thin built, bowel sounds are present. No masses. No tenderness. EXTREMITIES: No pedal edema. No calf tenderness. NEUROLOGICAL: Patient is awake, alert and oriented x3. Cranial nerves 2 through 12 are grossly intact. Steady gait on exam Please refer to medication reconciliation sheet for a list of medications. The impression and plan of care has been dictated by Sherlyn John, Nurse Practitioner as directed. Dr. Clarice MD I have performed a history and examination and MDM of this patient, discussed the same with the dictator, and agree with the dictator's assessment and plan as written ,documented as a scribe. Based on total visit time, I have performed more than 50% of the visit. Patient Condition at Discharge: Stable Plan - Discharge Summary Discharge Rx Participant: No New Discharge Prescriptions: New Lidocaine 4% Patch 2 patch TOPICAL DAILY #30 patch Levothyroxine Sodium [Synthroid] 125 mcg PO DAILY@0630 #30 tab Continue Acetaminophen Tab [Tylenol] 1,000 mg PO Q6HR PRN PRN Reason: Fever And/ Or Pain Discharge Medication List Acetaminophen Tab [Tylenol] 1,000 mg PO Q6HR PRN 10/21/23 [History] Levothyroxine Sodium [Synthroid] 125 mcg PO DAILY@0630 #30 tab 10/22/23 [Rx] Lidocaine 4% Patch 2 patch TOPICAL DAILY #30 patch 10/22/23 [Rx] Follow up Appointment(s)/Referral(s): Kane Rowley MD [STAFF PHYSICIAN] - 10/29/23 10:45 am Genesis Pro DO [Primary Care Provider] - 1-2 days Patient Instructions/Handouts: Bradycardia (DC) Activity/Diet/Wound Care/Special Instructions: Activity limited until follow-up Follow-up with primary care provider on discharge Follow-up with cardiology outpatient Continue taking medications as prescribed Discharge Disposition: HOME SELF-CARE
[2023-10-22 16:08] VITALS: PULSE 61
== END 2023-10-22 15:33 | disposition home or self-care (01) ==
LOC: EC 20:08 → 6NMEDSUR 22:13
PROVIDERS: ADMIT Hospitalist; ATTEND Hospitalist
DX: R07.89 Other chest pain (principal); R00.1 Bradycardia, unspecified; E03.9 Hypothyroidism, unspecified; T38.1X6A Underdosing of thyroid hormones and substitutes, initial encounter; Z91.128 Patient's intentional underdosing of medication regimen for other reason; R11.0 Nausea; M79.602 Pain in left arm; M25.512 Pain in left shoulder; R55 Syncope and collapse; Z79.890 Hormone replacement therapy; Z79.899 Other long term (current) drug therapy; Z88.5 Allergy status to narcotic agent
CPT/HCPCS: 99285; 36415; 93005; 93306; 85379; 84439; 80053; 84443; 83735; 84484 ×2; 85025; 85610; 85730; 71046; G0378 ×2

== ENCOUNTER 2024-11-03 23:51 | Emergency (ER) | payer OTHER ==
--- NOTE | 2024-11-04 01:05 | ED ---
Abdominal Pain HPI <Eunice Carlson - Last Filed: 11/04/24 06:33> - General Source: patient, RN notes reviewed Mode of arrival: ambulatory Limitations: no limitations <Nell Farrell - Last Filed: 11/06/24 03:39> - General Chief Complaint: Abdominal Pain Stated Complaint: abd pain Time Seen by Provider: 11/04/24 00:59 - History of Present Illness Initial Comments: 63-year-old male presenting for right flank pain x 2 days. States yesterday he began to experience intermittent achy pain in the right flank that radiates to the right lower abdomen. He also endorses hematuria over the past several days. States pain is worsening in quality and is becoming constant. He also endorses nausea but denies vomiting or fevers. Denies history of kidney stones. Denies abdominal surgeries. Denies blood thinners. (Nell Farrell) - Related Data Home Medications Medication Instructions Recorded Confirmed Acetaminophen Tab [Tylenol] 1,000 mg PO Q6HR PRN 10/21/23 10/21/23 Previous Rx's Medication Instructions Recorded Levothyroxine Sodium [Synthroid] 125 mcg PO DAILY@0630 #30 tab 10/22/23 Lidocaine 4% Patch 2 patch TOPICAL DAILY #30 patch 10/22/23 Ketorolac [Toradol] 10 mg PO Q8HR #15 tab 11/04/24 Tamsulosin [Flomax] 0.4 mg PO DAILY #7 cap 11/04/24 Allergies Allergy/AdvReac Type Severity Reaction Status Date / Time morphine AdvReac Severe DROPPED Verified 11/04/24 00:01 HEART RATE TO 28 Review of Systems ROS Other: All systems not noted in ROS Statement are negative. <Eunice Carlson - Last Filed: 11/04/24 06:33> ROS Other: All systems not noted in ROS Statement are negative. <Nell Farrell - Last Filed: 11/06/24 03:39> ROS Statement: Those systems with pertinent positive or pertinent negative responses have been documented in the HPI. Past Medical History Past Medical History: Thyroid Disorder Additional Past Medical History / Comment(s): HX COLON POLYP, HX OF FALL WITH BROKEN RIBS. kidney stones, bradycardia History of Any Multi-Drug Resistant Organisms: None Reported Additional Past Surgical History / Comment(s): colonsocopy Past Anesthesia/Blood Transfusion Reactions: No Reported Reaction Past Psychological History: No Psychological Hx Reported Smoking Status: Never smoker Past Alcohol Use History: None Reported Past Drug Use History: None Reported - Past Family History Mother Family Medical History: Cancer Additional Family Medical History / Comment(s): BREAST CANCER <Nell Farrell - Last Filed: 11/06/24 03:39> General Exam Limitations: no limitations General appearance: alert, in no apparent distress Head exam: Present: atraumatic, normocephalic, normal inspection Eye exam: Present: normal appearance, PERRL, EOMI. Absent: scleral icterus, conjunctival injection, periorbital swelling Respiratory exam: Present: normal lung sounds bilaterally. Absent: respiratory distress, wheezes, rales, rhonchi, stridor Cardiovascular Exam: Present: regular rate, normal rhythm, normal heart sounds. Absent: systolic murmur, diastolic murmur, rubs, gallop, clicks GI/Abdominal exam: Present: soft, normal bowel sounds. Absent: distended, tenderness, guarding, rebound, rigid Back exam: Absent: CVA tenderness (R), CVA tenderness (L) Neurological exam: Present: alert, oriented X3 Psychiatric exam: Present: normal affect, normal mood Skin exam: Present: warm, dry, intact, normal color. Absent: rash <FarrellNell - Last Filed: 11/06/24 03:39> Course Vital Signs 11/04/24 11/04/24 11/04/24 00:01 01:31 02:49 Temperature 98.0 F 98.2 F Pulse Rate 65 63 54 L Respiratory 16 20 18 Rate Blood Pressure 168/113 155/95 162/96 O2 Sat by Pulse 97 98 96 Oximetry 11/04/24 11/04/24 04:52 06:42 Temperature 97.9 F Pulse Rate 56 L 59 L Respiratory 18 18 Rate Blood Pressure 144/89 139/91 O2 Sat by Pulse 98 96 Oximetry Medical Decision Making - Lab Data Result diagrams: 11/04/24 01:18 11/04/24 01:18 <Eunice Carlson - Last Filed: 11/04/24 06:33> - Lab Data Result diagrams: 11/04/24 01:18 11/04/24 01:18 <Nell Farrell - Last Filed: 11/06/24 03:39> - Medical Decision Making Was pt. sent in by a medical professional or institution (AAYUSH Ricardo, RECEIVING WORKER, urgent care, hospital, or custodial...) When possible be specific @ -No Did you speak to anyone other than the patient for history (EMS, parent, family, police, friend...)? What history was obtained from this source @ -No Did you review nursing and triage notes (agree or disagree)? Why? @ -I reviewed and agree with nursing and triage notes Were old charts reviewed (outside hosp., previous admission, EMS record, old EKG, old radiological studies, urgent care reports/EKG's, custodial records)? Report findings @ -No old charts were reviewed Differential Diagnosis (chest pain, altered mental status, abdominal pain women, abdominal pain men, vaginal bleeding, weakness, fever, dyspnea, syncope, headache, dizziness, GI bleed, back pain, seizure, CVA, palpatations, mental health, musculoskeletal)? @ -Differential Abdominal Pain Men: Appendicitis, cholecystitis, diverticulosis, ischemic bowel, pancreatitis, h epatitis, UTI, gastroenteritis, AAA, incarcerated hernia, bowel obstruction, constipation, inflammatory bowel, hepatitis, peptic ulcer disease, splenic infarction, perforated viscus, testicular torsion, this is not meant to be an all-inclusive list EKG interpreted by me (3pts min.). @ -None X-rays interpreted by me (1pt min.). @ -None done CT interpreted by me (1pt min.). @ -CT abdomen pelvis reveals 3 mm obstructing right vesiculou junctionreteral stone causing mild hydro ureter, hydronephrosis, and perinephric stranding, jejunitis, tip of appendix dilated to 1 cm new from prior study U/S interpreted by me (1pt. min.). @ -None done What testing was considered but not performed or refused? (CT, X-rays, U/S, labs)? Why? @ -None What meds were considered but not given or refused? Why? @ -None Did you discuss the management of the patient with other professionals (professionals i.e. AAYUSH Ricardo, RECEIVING WORKER, lab, RT, psych nurse, social media coordinator, tooling inspector, teacher, armoured corps officer, corrections caseworker)? Give summary @ -No Was smoking cessation discussed for >3mins.? @ -No Was critical care preformed (if so, how long)? @ -No Were there social determinants of health that impacted care today? How? (Homelessness, low income, unemployed, alcoholism, drug addiction, transportation, low edu. Level, literacy, decrease access to med. care, [place] [facility], rehab)? @ -No Was there de-escalation of care discussed even if they declined (Discuss DNR or withdrawal of care, Hospice)? DNR status @ -No What co-morbidities impacted this encounter? (DM, HTN, Smoking, COPD, CAD, Cancer, CVA, ARF, Chemo, Hep., AIDS, mental health diagnosis, sleep apnea, morbid obesity)? @ -None Was patient admitted / discharged? Hospital course, mention meds given and route, prescriptions, significant lab abnormalities, going to OR and other pe rtinent info. @ -63-year-old male presenting for right flank pain x 2 days with associated hematuria. Patient is afebrile with no CVA tenderness. Provided with Toradol, Zofran, and IV fluids. Lab work remarkable for white blood cell count of 12, creatinine 1.45. Urinalysis reveals small blood and 1+ ketones. Upon reevaluation, patient reports significant improvement of symptoms. Pain is now reported as a 2. CT abdomen pelvis reveals 3 mm obstructing right vesiculou junctionreteral stone causing mild hydro ureter, hydronephrosis, and perinephric stranding, jejunitis, tip of appendix dilated to 1 cm new from prior study. Results discussed with patient. As pain is controlled, patient can be safely discharged with urology and PCP follow-up and strict return precautions. Prescribed Flomax and Toradol. Case was discussed with my ED attending Dr. Carlson. Undiagnosed new problem with uncertain prognosis? @ -No Drug Therapy requiring intensive monitoring for toxicity (Heparin, Nitro, Insulin, Cardizem)? @ -No Were any procedures done? @ -No Diagnosis/symptom? @ -Right nephrolithiasis Acute, or Chronic, or Acute on Chronic? @ -Acute Uncomplicated (without systemic symptoms) or Complicated (systemic symptoms)? @ -Uncomplicated Side effects of treatment? @ -No Exacerbation, Progression, or Severe Exacerbation? @ -No Poses a threat to life or bodily function? How? (Chest pain, [place], [place], pneumonia, PE, COPD, DKA, ARF, appy, cholecystitis, CVA, Diverticulitis, Homicidal, Suicidal, threat to staff... and all critical care pts) @ -No (Nell Farrell) - Lab Data Lab Results 11/04/24 11/04/24 11/04/24 Range/Units 01:18 01:18 01:18 WBC 12.15 H (4.50-10.00) 10*3/uL RBC 4.88 (4.40-5.60) 10*6/uL Hgb 15.4 (13.0-17.0) g/dL Hct 43.0 (39.6-50.0) % MCV 88.1 (80.0-97.0) fL MCH 31.6 (27.0-32.0) pg MCHC 35.8 (32.0-37.0) g/dL Plt Count 163 (140-440) 10*3/uL MPV 11.4 (9.5-12.2) fL Immature Gran % (Auto) 0.3 % Neutrophils % 79.6 % Lymphocytes % 10.9 % Monocytes % 8.4 % Eosinophils % 0.3 % Basophils % 0.5 % Immature Gran # 0.04 (0.00-0.04) 10*3/uL Neutrophils # 9.67 H (1.80-7.70) 10*3/uL Lymphocytes # 1.32 (0.90-5.00) 10*3/uL Monocytes # 1.02 H (0.20-1.00) 10*3/uL Eosinophils # 0.04 (0.04-0.35) 10*3/uL Basophils # 0.06 (0.00-0.10) 10*3/uL Sodium 134 L (137-145) mmol/L Potassium 4.3 (3.5-5.1) mmol/L Chloride 99 (98-107) mmol/L Carbon Dioxide 24 (22-30) mmol/L Anion Gap 11 mmol/L BUN 19 (9-20) mg/dL Creatinine 1.45 H (0.66-1.25) mg/dL Est GFR (CKD-EPI)AfAm 58 (>60 ml/min/1.73 sqM) Est GFR (CKD-EPI)NonAf 50 (>60 ml/min/1.73 sqM) Glucose 113 H (74-99) mg/dL Plasma Lactic Acid Pj 0.8 (0.7-2.0) mmol/L Calcium 10.3 H (8.4-10.2) mg/dL Total Bilirubin 1.3 (0.2-1.3) mg/dL AST 27 (17-59) U/L ALT 28 (4-49) U/L Alkaline Phosphatase 67 (38-126) U/L Total Protein 6.9 (6.3-8.2) g/dL Albumin 4.5 (3.5-5.0) g/dL Lipase 86 (23-300) U/L Urine Color Urine Appearance (Clear) Urine pH (5.0-8.0) Ur Specific [place] (1.001-1.035) Urine Protein (Negative) Urine Glucose (UA) (Negative) Urine Ketones (Negative) Urine Blood (Negative) Urine Nitrite (Negative) Urine Bilirubin (Negative) Urine Urobilinogen (<2.0) mg/dL Ur Leukocyte Esterase (Negative) Urine RBC (0-5) /hpf Urine WBC (0-5) /hpf 11/04/24 Range/Units 02:50 WBC (4.50-10.00) 10*3/uL RBC (4.40-5.60) 10*6/uL Hgb (13.0-17.0) g/dL Hct (39.6-50.0) % MCV (80.0-97.0) fL MCH (27.0-32.0) pg MCHC (32.0-37.0) g/dL Plt Count (140-440) 10*3/uL MPV (9.5-12.2) fL Immature Gran % (Auto) % Neutrophils % % Lymphocytes % % Monocytes % % Eosinophils % % Basophils % % Immature Gran # (0.00-0.04) 10*3/uL Neutrophils # (1.80-7.70) 10*3/uL Lymphocytes # (0.90-5.00) 10*3/uL Monocytes # (0.20-1.00) 10*3/uL Eosinophils # (0.04-0.35) 10*3/uL Basophils # (0.00-0.10) 10*3/uL Sodium (137-145) mmol/L Potassium (3.5-5.1) mmol/L Chloride (98-107) mmol/L Carbon Dioxide (22-30) mmol/L Anion Gap mmol/L BUN (9-20) mg/dL Creatinine (0.66-1.25) mg/dL Est GFR (CKD-EPI)AfAm (>60 ml/min/1.73 sqM) Est GFR (CKD-EPI)NonAf (>60 ml/min/1.73 sqM) Glucose (74-99) mg/dL Plasma Lactic Acid Pj (0.7-2.0) mmol/L Calcium (8.4-10.2) mg/dL Total Bilirubin (0.2-1.3) mg/dL AST (17-59) U/L ALT (4-49) U/L Alkaline Phosphatase (38-126) U/L Total Protein (6.3-8.2) g/dL Albumin (3.5-5.0) g/dL Lipase (23-300) U/L Urine Color Colorless Urine Appearance Clear (Clear) Urine pH 6.0 (5.0-8.0) Ur Specific [place] 1.013 (1.001-1.035) Urine Protein Negative (Negative) Urine Glucose (UA) Negative (Negative) Urine Ketones 1+ H (Negative) Urine Blood Small H (Negative) Urine Nitrite Negative (Negative) Urine Bilirubin Negative (Negative) Urine Urobilinogen <2.0 (<2.0) mg/dL Ur Leukocyte Esterase Negative (Negative) Urine RBC 5 (0-5) /hpf Urine WBC 1 (0-5) /hpf Disposition Is patient prescribed a controlled substance at d/c from ED?: No <Eunice Carlson - Last Filed: 11/04/24 06:33> Is patient prescribed a controlled substance at d/c from ED?: No Time of Disposition: 16:19 <Nell Farrell - Last Filed: 11/06/24 03:39> Clinical Impression: Right nephrolithiasis Disposition: HOME SELF-CARE Condition: Stable Instructions (If sedation given, give patient instructions): Kidney Stones (ED) Additional Instructions: Take Flomax as prescribed. Follow-up with urology next week. Please return to the Emergency Department if symptoms worsen or any other concerns. Additionally please follow-up with general surgeon, Dr. Cook, or your primary care provider within 1 month regarding enlarged appendix/ questionable mass on your appendix, for recheck. Regarding your concern for an ulcer, please trial omeprazole or esomeprazole (nexium) 1 tablet nightly for 2 weeks and pepcid as needed. Prescriptions: Tamsulosin [Flomax] 0.4 mg PO DAILY #7 cap Ketorolac [Toradol] 10 mg PO Q8HR #15 tab Referrals: Genesis Pro DO [Primary Care Provider] - 1-2 days Marco Clark MD [STAFF PHYSICIAN] - 1-2 days
[2024-11-04] MEDS: SODIUM CHLORIDE 0.9% 1,000 ML IV STA (01:26)
[2024-11-04 01:33] LABS: Basophils # (A) 0.06 10*3/uL (0.00-0.10); Basophils % (A) 0.5 %; Eosinophils # (A) 0.04 10*3/uL (0.04-0.35); Eosinophils % (A) 0.3 %; HGB 15.4 g/dL (13.0-17.0); Lymphocytes # (A) 1.32 10*3/uL (0.90-5.00); Lymphocytes % (A) 10.9 %; MCH 31.6 pg (27.0-32.0); MCHC 35.8 g/dL (32.0-37.0); MCV 88.1 fL (80.0-97.0); Mean Platelet Volume 11.4 fL (9.5-12.2); Monocytes # (A) 1.02 10*3/uL (0.20-1.00); Monocytes % (A) 8.4 %; Neutrophils # (A) 9.67 10*3/uL (1.80-7.70); Neutrophils % (A) 79.6 %; Platelet Count 163 10*3/uL (140-440); RBC 4.88 10*6/uL (4.40-5.60); WBC 12.15 10*3/uL (4.50-10.00)
[2024-11-04] MEDS: ONDANSETRON 4 MG/2 ML VIAL IVP STA (01:34)
[2024-11-04] MEDS: KETOROLAC 15 MG/ML 1 ML VIAL IVP STA (01:37)
[2024-11-04 01:54] LABS: ALT 28 U/L (4-49); AST 27 U/L (17-59); African American GFR (CKD) 58 (>60 ml/min/1.73 sqM); Albumin 4.5 g/dL (3.5-5.0); Alkaline Phosphatase 67 U/L (38-126); Anion Gap 11 mmol/L; Blood Urea Nitrogen 19 mg/dL (9-20); Calcium 10.3 mg/dL (8.4-10.2); Carbon Dioxide 24 mmol/L (22-30); Chloride 99 mmol/L (98-107); Glucose 113 mg/dL (74-99); Lipase 86 U/L (23-300); Non-African American GFR(CKD) 50 (>60 ml/min/1.73 sqM); Potassium 4.3 mmol/L (3.5-5.1); Sodium 134 mmol/L (137-145); Total Bilirubin 1.3 mg/dL (0.2-1.3); Total Protein 6.9 g/dL (6.3-8.2)
[2024-11-04 02:55] VITALS: RESP 18
[2024-11-04 03:13] LABS: Appearance,Urine Clear (Clear); Bilirubin,Urine Negative (Negative); Blood,Urine Small (Negative); Color,Urine Colorless; Glucose,Urine (UA) Negative (Negative); Ketones,Urine 1+ (Negative); Leukocyte Esterase,Urine Negative (Negative); Nitrite,Urine Negative (Negative); Protein,Urine Negative (Negative); RBC,Urine 5 /hpf (0-5); Specific Gravity,Urine 1.013 (1.001-1.035); Urobilinogen,Urine <2.0 mg/dL (<2.0); WBC,Urine 1 /hpf (0-5)
--- NOTE | 2024-11-04 04:48 | CT ---
EXAM: CT Abdomen and Pelvis Without Intravenous Contrast CLINICAL HISTORY: ITS.REASON CT Reason: right flank pain with hematuria TECHNIQUE: Axial computed tomography images of the abdomen and pelvis without intravenous contrast. Coronal and sagittal reconstructions are performed. CTDI is 9 mGy and DLP is 602.6 mGy-cm. This CT exam was performed using one or more of the following dose reduction techniques: automated exposure control, adjustment of the mA and/or kV according to patient size, and/or use of iterative reconstruction technique. 514 images COMPARISON: CT chest abdomen pelvis from 05/27/2018. FINDINGS: Lung bases: Unremarkable. No mass. No consolidation. ABDOMEN: Liver: Unremarkable. Gallbladder and bile ducts: No acute findings. Pancreas: Unremarkable. No ductal dilation. Spleen: Unremarkable. No splenomegaly. Adrenals: Unremarkable. No mass. Kidneys and ureters: 3mm obstructing right vesicoureteral junction stone causes mild hydroureter, hydronephrosis and perinephric stranding. 22 mm mid pole left renal cyst, cannot be fully characterized due to lack of IV contrast. Punctate nonobstructing left renal stones. Small posterior left renal cyst, cannot be fully characterized due to lack of IV contrast. Stomach and bowel: Short segment of jejunum in left mid abdomen measuring up to 9 mm surrounded by prominent mesenteric stranding, may suggest jejunitis. No obstruction. PELVIS: Appendix: Tip of appendix is dilated to 1 cm maximal diameter without surrounding mesenteric stranding best seen on series 201 image 60, new from the prior study, nonspecific, can still be patient's baseline. Mass lesion or mucocele cannot ruled out. Bladder: Unremarkable. No stones. Reproductive: No acute findings. ABDOMEN and PELVIS: Intraperitoneal space: Unremarkable. No free air. No significant fluid collection. Bones/joints: Osteopenia suspected. Mild mid lumbar scoliosis convexed to the left. Soft tissues: Unremarkable. Vasculature: Unremarkable. No abdominal aortic aneurysm. Lymph nodes: Unremarkable. No enlarged lymph nodes. IMPRESSION: 1. 3mm obstructing right vesicoureteral junction stone causes mild hydroureter, hydronephrosis and perinephric stranding. 2. Punctate nonobstructing left renal stones. 3. Suspect jejunitis. 4. Tip of appendix is dilated to 1 cm maximal diameter without surrounding mesenteric stranding, new from the prior study, nonspecific, can still be patient's baseline. Mass lesion or mucocele cannot ruled out.
[2024-11-04 06:54] VITALS: BP 139/91; PULSE 59; TEMP 97.9
== END 2024-11-04 06:52 | disposition home or self-care (01) ==
LOC: EC 23:51
DX: N13.2 Hydronephrosis with renal and ureteral calculous obstruction (principal); Z88.5 Allergy status to narcotic agent
CPT/HCPCS: 36415; 80053; 83605; 83690; 85025; 81001; 74176; 99284; 96374; 96375; 96361; J2405; J1885

== ENCOUNTER 2024-11-24 10:22 | Day surgery (SDC) | payer OTHER ==
[2024-11-24] MEDS ORDERED: MIDAZOLAM 2 MG/2 ML VIAL IV PRN (10:23)
[2024-11-24] MEDS ORDERED: fentaNYL (PF) 50 MCG/ML 2 ML AMP IV PRN (10:23)
[2024-11-24 10:46] VITALS: TEMP 97.2
[2024-11-24] MEDS: LACTATED RINGERS 1,000 ML IV SCH (10:56)
[2024-11-24] MEDS: DEXAMETHASONE SOD PHOSPHATE 4 MG/ML 1 ML VIAL IV ONE (10:56)
[2024-11-24] MEDS: ONDANSETRON 4 MG/2 ML VIAL IVP ONE (10:56)
[2024-11-24] MEDS: HEPARIN SODIUM,PORCINE 5,000 UNIT/ML 1 ML VIAL SQ PRN (10:59)
[2024-11-24] MEDS: IV FLUID CONTINUATION 1,000 ML IV ONE ×2 (11:08→14:16)
[2024-11-24] MEDS ORDERED: MIDAZOLAM 2 MG/2 ML VIAL ONE (12:27)
[2024-11-24] MEDS ORDERED: KETOROLAC 15 MG/ML 1 ML VIAL ONE (12:27)
[2024-11-24] MEDS ORDERED: SUCCINYLCHOLINE CHLORIDE 200 MG/10 ML VIAL IV ONE (12:27)
[2024-11-24] MEDS ORDERED: GLYCOPYRROLATE 0.2 MG/ML 2 ML VIAL ONE (12:27)
[2024-11-24] MEDS ORDERED: fentaNYL (PF) 50 MCG/ML 2 ML AMP ONE (12:27)
[2024-11-24] MEDS ORDERED: LIDOCAINE 1% INJ 10MG/ML (20 ML MDV) ONE (12:27)
[2024-11-24] MEDS ORDERED: PROPOFOL 10 MG/ML 20 ML VIAL IV ONE (12:27)
[2024-11-24] MEDS ORDERED: NEOSTIGMINE 1 MG/ML 10 ML VIAL ONE (12:27)
[2024-11-24] MEDS ORDERED: ROCURONIUM 10 MG/ML (5 ML VIAL) IV ONE (12:27)
[2024-11-24] MEDS: ceFAZolin 2 GM in DEXTROSE 5% IN WATER 50 ML IVPB PRN (12:32)
[2024-11-24] MEDS: BUPIVACAINE (PF) 0.25% 30 ML VIAL SQ ONE ×2 (12:52)
[2024-11-24 14:44] VITALS: RESP 16
[2024-11-24 14:48] VITALS: BP 115/70; PULSE 43
--- NOTE | 2024-11-24 16:55 | P.OP ---
Date of Procedure: 11/24/24 Preoperative Diagnosis: Dilated appendix Concern for mucocele Postoperative Diagnosis: Dilated appendix Concern for mucocele Procedure(s) Performed: Robotic appendectomy Anesthesia: MELINAA Surgeon: Richard Frank Pathology: other (Appendix) Condition: stable Disposition: same day Indications for Procedure: 64-year-old male presented to the surgery clinic with incidental finding on CT of 1 cm dilation of the tip of his appendix. There is concern for mucocele. Secondary to this, plan is for elective appendectomy. Risks, benefits and alternatives were provided to the patient. All questions were answered prior to attending the operating suite. Operative Findings: Dilated tip of the appendix Description of Procedure: Patient was brought to the operative suite and placed in supine position on the operating table. Sedation provided anesthesia and the patient underwent endotracheal intubation. Patient was then prepped and draped in regular sterile fashion. Supraumbilical incision was made and dissection was carried to the fascia. The fascia was incised and a 12 mm trocar was placed. Additional 8 mm trocars were placed in the suprapubic region and the left lower quadrant after pneumoperitoneum was achieved. Patient was positioned in appropriate position. The cecum was identified and grasped and the appendiceal base was clearly visualized. The appendix was evaluated with notable dilation of the appendiceal tip. No significant adhesive disease was noted. A window was created between the appendix and the mesoappendix and this was ligated using cautery. The base of the appendix was cleared from surrounding tissue an stapler device was fired. Hemostasis was noted at the staple line. The appendix was then placed in the Endo Catch bag and removed from the abdomen. Evaluation of the site revealed continued hemostasis. The supraumbilical fascia was closed with 0 Vicryl suture under direct visualization using Dilshad Cancino device. Pneumoperitoneum was released. All ports removed from the abdomen. All incision sites closed with 4-0 Vicryl subcuticular suture. Sterile dressing was applied. Patient was awakened in the operating suite and taken to postanesthesia care unit in stable condition.
== END 2024-11-24 15:34 | disposition home or self-care (01) ==
LOC: OR 10:22
PROVIDERS: ATTEND Surgery
DX: C18.1 Malignant neoplasm of appendix (principal); E03.9 Hypothyroidism, unspecified; Z79.890 Hormone replacement therapy; Z88.5 Allergy status to narcotic agent
CPT/HCPCS: 44970; S2900; 88304